=== PATIENT | female | born 1955 | race Caucasian/White ===

== ENCOUNTER → 2016-10-31 | Outpatient (CLI) | payer MEDICARE ==
[~2016-10-31] MED LIST: ACETAMINOPHEN PO; ACETAMINOPHEN650 M3 PO; ALBUTEROL17 GM INH; ALLEGRA; ALLEGRA PO; ALPRAZOLAM; ALPRAZOLAM ER1 MG PO; ALPRAZOLAM PO; ALPRAZOLAM1 M1 PO; AMBIEN PO; AMBIEN10 MG PO; AMITRYPTYLINE; AMLODIPINE BESYL5 MG PO; ASPERDRINK81 MG PO; ASPIRIN; ASPIRIN PO; ASPIRIN81 M1 PO; B-12 INJ; BENADRYL PO; BENADRYL25 MG PO; CELEXA PO; CLEOCIN PO; CLINDAMYCIN HC300 MG PO; CORTEF PO; COUMADIN; CYANOCOBAL1000 MCG/M INJ; CYMBALTA PO; CYMBALTA30 MG PO; CYPROHEPTADINE H4 MG; CYPROHEPTADINE H4 MG PO; DICLOFENAC; DICLOFENAC PO; DOXYCYCLINE PO; FAMOTIDINE; FERROUS SULFATE1 TAB PO; GABAPENTIN600 MG PO; GLUCOPHAGE500 MG PO; HCTZ PO; HIGH POTENCY B1 TAB PO; HYDROCHLOROTH12.5 M1 PO; HYDROCHLOROTH12.5 MG PO; HYDROCODON-ACE1 EAC7 PO; HYDROCODONE BITA5 GM PO; HYOMAX PO; HYOMAX-SR0.375 MG PO; K-DUR20 ME2 PO; KADIAN; KCL PO; KLOR-CON PO; KROGER PHARMACY; LEVAQUIN PO; LEVBID; LEVOTHYROXINE50 MCG PO; LEVSIN PO; LIPITOR; LOVASTATIN20 M1 PO; LOVASTATIN20 MG PO; METFORMIN HCL500 M1 PO; METFORMIN PO; MEVACOR PO; MICRO-K PO; MORPHINE IR PO; MORPHINE SULFAT30 M4 PO; MS CONTIN PO; MS CONTIN30 MG PO; NEURONTIN PO; NEURONTIN600 MG PO; NORVASC PO; OMEPRAZOLE40 MG PO; ORAMORPH SR30 MG PO; PERCOCET10 PO; PHENERGAN PO; PHENERGAN25 M1 PO; PHENERGAN25 MG PO; PREDNISOLONE5 MG; PREDNISOLONE5 MG PO; PREDNISONE PO; PREDNISONE5 M1 PO; PREDNISONE5 MG PO; PRILOSEC PO; PRILOSEC40 MG PO; PROMETHAZINE HC25 MG PO; PROTONIX PO; SYNTHROID PO; TESSALON200 MG PO; TIGAN IV; TIGECYCLINE; TIZANIDINE HCL4 M1 PO; UREA 10% TOP; VANCOCIN HCL250 MG PO; VANCOMYCIN IV; VANCOMYCIN1.25 GM/15 IV; VICODIN 5/500 T1 TAB; VITAMIN B; VITAMIN B 12 INJ; VITAMIN B-1000 MCG/1 IJ; VITAMIN D PO; VITAMIN D2000 UNI1; VITAMIN D2000 UNI1 PO; XANAX1 MG PO; XENADERM TOP; ZANAFLEX; ZANAFLEX PO; ZANAFLEX4 M1 PO; ZOLPIDEM TARTRA10 MG PO; ZYVOX600 MG PO; [UNRECOGNIZED DRUG - OTHER]
== END | disposition home or self-care (01) ==
LOC: CLAB 14:08
DX: R94.6 Abnormal results of thyroid function studies (principal)
CPT/HCPCS: 36415; 72040; 72100; 84481